=== PATIENT | female | born 1955 | race Caucasian/White ===

== ENCOUNTER 2020-11-13 15:21 | Inpatient (IN) | payer OTHER, MEDICARE ==
[2020-11-13] MEDS ORDERED: Loperamide HCl 2 MG CAP PO PRN ×2 (15:30→16:09)
[2020-11-13] MEDS ORDERED: HYDROcodone/Acetaminophen 5/325 mg Tablet PO PRN (15:30)
[2020-11-13] MEDS ORDERED: [UNRECOGNIZED DRUG - OTHER] TOP PRN (16:09)
[2020-11-13] MEDS ORDERED: Nystatin Powder 15 GM BOT TOP PRN (16:09)
[2020-11-13] MEDS ORDERED: cefTRIAXone\\ROCEPHIN 1 GM VIAL IVPB SCH (16:15)
[2020-11-13] MEDS: cefTRIAXone\\ROCEPHIN 1 GM in Sodium Chloride 0.9% 100 ML IVPB SCH (17:25)
[2020-11-13] MEDS ORDERED: Vancomycin HCl 750 MG in Sodium Chloride 0.9% 250 ML 250 ML IVPB SCH ×2 (18:00→20:00)
[2020-11-13 18:52] LABS: Vancomycin, Trough 18.1 ug/mL
[2020-11-13] MEDS ORDERED: Vancomycin HCl 1 GM in Sodium Chloride 0.9% 250 ML 250 ML IVPB SCH ×2 (19:00→21:00)
[2020-11-13] MEDS: HYDROcodone/Acetaminophen 5/325 mg Tablet PO PRN (20:51)
[2020-11-13] MEDS: Vitamin E 400 UNITS CAP PO SCH (20:54)
[2020-11-13] MEDS: Colchicine 0.6 MG TAB PO SCH (20:54)
[2020-11-13] MEDS: Apixaban 5 MG TAB PO SCH (20:55)
[2020-11-13] MEDS: Folic Acid 1 MG TAB PO SCH (20:55)
[2020-11-13] MEDS: Carvedilol 25 MG TAB PO SCH (20:55)
[2020-11-13] MEDS: Valsartan 80 MG TAB PO SCH (20:55)
[2020-11-14 05:25] LABS: #Eosinphils 0.2 thou/uL (0.0-0.7); #Lymphocytes 1.5 thou/uL (1.20-3.40); #Monocytes 0.4 thou/uL (0.11-0.59); #Neutrophils 7.2 thou/uL (1.40-6.50); %Basophils 0.5 % (0.0-1.0); %Eosinophils 2.5 % (0.0-10.0); %Lymphocytes 15.5 % (21.0-51.0); %Monocytes 3.8 % (0.0-10.0); %Neutrophils 77.7 % (42.0-75.0); Hemoglobin 10.6 g/dL (12.0-16.0); Mean Corpuscular HGB CONC 31.6 g/dL (32.0-36.0); Mean Corpuscular Hemoglobin 27.7 pg (27.0-31.0); Mean Corpuscular Volume 87.8 fL (78.0-98.0); Mean Platelet Volume 6.7 fL (7.4-10.4); Platelet Count 253 thou/uL (130-400); RBC Distribution Width 15.8 % (11.5-14.5); Red Blood Cell (RBC) Count 3.82 mill/uL (4.20-5.40); White Blood Cell (WBC) Count 9.3 thou/uL (4.8-10.8)
[2020-11-14 05:32] LABS: ALT (SGPT) 12 U/L (8-55); AST (SGOT) 16 U/L (5-34); Albumin 2.8 g/dL (3.4-4.8); Alkaline Phosphatase 136 U/L (40-110); Anion Gap 14 mmol/L (10-20); BUN (Urea Nitrogen) 11 mg/dL (9.8-20.1); Bilirubin, Total 0.4 mg/dL (0.2-1.2); Calc. Creatinine Clearance 116 mL/min (70-130); Calcium 8.7 mg/dL (7.8-10.44); Carbon Dioxide 27 mmol/L (23-31); Chloride 107 mmol/L (98-107); Globulin 2.8 g/dL (2.4-3.5); Glucose 101 mg/dL (80-115); Potassium 3.6 mmol/L (3.5-5.1); Protein, Total 5.6 g/dL (5.8-8.1); Sodium 144 mmol/L (136-145)
--- NOTE | 2020-11-14 07:52 | HP ---
HISTORY OF PRESENT ILLNESS: The patient is a very pleasant 65-year-old white female with a long history of hypertension, hyperlipidemia, and rheumatoid arthritis with good control on methotrexate and Enbrel, who did develop however in an occult abscess of her right foot with subsequent MSSA bacteremia requiring abscess incision and drainage of right foot and placement on long-term antibiotics with Rocephin and vancomycin. Concomitantly with initiation of this antibiotic treatment, she developed recurrent severe diarrhea with extensive workup including multiple studies for bacteria, infection, parasitic infection, inflammatory bowel disease, ischemic bowel disease with negative colonoscopy. She subsequently required admission back to the hospital again because of incontinence and recurrent diarrhea and dehydration. There she was also found to have a stage IV decubitus ulcer because of her poor nutrition, 15-25 pounds weight loss, and recurrent fecal incontinence on admissions. She was also found to be severely hypokalemic and was subsequently readmitted back to the hospital. She has improved with institution of antidiarrheal agents with loperamide and probiotic with Florastor, Metamucil and ongoing treatment with narcotics for her sacral decubitus pain. She transiently had a wound VAC on the right foot, which has been discontinued, however, it is felt that she required physical therapy, occupational therapy as well as long-term antibiotics at the skilled unit to finish her full 6 week course at end of October on vancomycin and Rocephin. She has developed another complication of red man syndrome secondary to the vancomycin being treated with Benadryl with persistent rash but no signs of anaphylaxis. Patient developed a DVT in her right lower extremity in the last week secondary to immobility and has been started on Eliquis therapy. PAST MEDICAL HISTORY: As mentioned above is positive for long-term rheumatoid arthritis with only complications of some rheumatoid nodules, but no significant deformities on long-term methotrexate and Enbrel. She also has a history of hypertension, well controlled on carvedilol and furosemide. She has a history of hyperlipidemia on no treatment at this time. Past medical history is also remarkable for history of viral myocarditis with significant decreased ejection fraction, resolved with time. SOCIAL HISTORY: She lives alone. She drinks socially. Denies drug abuse, nicotine abuse. She has been working full-time prior to this. ALLERGIES: SHE HAS A HISTORY OF ALLERGY TO PENICILLIN OINTMENTS. PAST SURGICAL HISTORY: Positive for cholecystectomy, incision and drainage of right foot abscess, carpal tunnel surgery, PICC line placement. REVIEW OF SYSTEMS: HEENT: She denies any headaches, dizziness, change in vision or hearing, hoarseness, or dysphagia. PULMONARY: She denies cough, sputum production, pneumonia, asthma or tuberculosis. CARDIOVASCULAR: She denies chest pain, orthopnea, paroxysmal nocturnal dyspnea or edema. GASTROINTESTINAL: She denies nausea, vomiting. Her diarrhea appears to be improved with above-mentioned treatment. Tolerating a regular diet. GENITOURINARY: She denies dysuria, hematuria, nocturia. MUSCULOSKELETAL: She has the above-mentioned history of a right foot abscess. Wound VAC has been removed and is wrapped and she is cooperating with therapy. She also has a history of stage IV decubitus, not examined by me or by the nurse. Appears to be clean on pictures, is bandaged at this time. NEUROLOGIC: She denies localized numbness, weakness, or extremities. PHYSICAL EXAMINATION: GENERAL: The patient is an elderly white female, lying in bed, no acute distress, ambulating to the bathroom. No distress. VITAL SIGNS: Showed to have temperature 96, pulse 68, respirations 18, O2 sats 98% on room air, blood pressure 159/70. HEENT: Pupils are equal, round, and reactive to light and accommodation. Sclerae anicteric. Conjunctivae pale. Oral mucous membranes well hydrated. NECK: Supple. There are no nodes or masses. JVP is not elevated. LUNGS: Clear. CARDIAC: Showed regular rhythm. No gallops or murmurs. ABDOMEN: Soft and nontender with no masses or organomegaly. SKIN/EXTREMITIES: Show right foot is bandaged. There is a bandage over sacrum. There is diffuse red rash to her body, worsened after vancomycin treatment. NEUROLOGIC: Cranial nerves II through XII intact. Deep tendon reflex 2+ and equal. There are absent Babinski's. LABORATORY DATA: Show white count 9300, hematocrit 33, hemoglobin 10. Sodium is 144, potassium 3.6, chloride 107, bicarb 27, BUN 11, creatinine 0.78, glucose 101, calcium 8.7, alkaline phosphatase 136, albumin 2.8, total protein 5.6. ASSESSMENT: 1. Rheumatoid arthritis, controlled to goal with only few rheumatoid nodules until development of an occult abscess in the right foot, which now has been incised and drained. She has been continued on her methotrexate and Enbrel with no evidence of current infection. 2. Methicillin-susceptible Staphylococcus aureus bacteremia; on IV vancomycin and Rocephin until November 23. No evidence of recurrence. 3. Red man syndrome secondary to vancomycin despite slow infusion and we will discuss with Infectious Disease. Necessity to continue vancomycin and addition of Rocephin. 4. Severe deconditioning, improving, but is needing to work with therapy to maintain ADLs. 5. Recurrent diarrhea, which appears to be improving on symptomatic treatment with loperamide, psyllium, probiotic. 6. Hypertension, controlled to goal. 7. History of viral myocarditis and cardiomyopathy, resolved. 8. New onset of deep vein thrombosis; on apixaban 5 mg twice daily for 3 months. No evidence of pulmonary embolus. 9. T12 compression fracture with resolved pain felt possibly due to diskitis but no need for significant new therapy and improving. 10. Chronic kidney disease, stage 2, stable, being followed. 11. Malnutrition with decreased albumin, but eating well and we will monitor. Job ID: [id number]
[2020-11-14] MEDS: Fish Oil 1,000 MG CAP PO SCH (09:06)
[2020-11-14] MEDS: Calcium Carbonate 600 MG + Vit D TAB PO SCH (09:06)
[2020-11-14] MEDS: Metamucil PACK PO SCH (09:06)
[2020-11-14] MEDS: Saccharomyces boulardii 250 MG CAP PO SCH (09:07)
[2020-11-14] MEDS: Cholecalciferol 1,000 UNITS (25 MCG) TAB PO SCH (09:10)
[2020-11-14] MEDS: Vitamin E 400 UNITS CAP PO SCH ×2 (09:10→21:10)
[2020-11-14] MEDS: Stress 600 With Zinc 1 TAB PO SCH (09:10)
[2020-11-14] MEDS: Colchicine 0.6 MG TAB PO SCH ×2 (09:10→21:10)
[2020-11-14] MEDS: Apixaban 5 MG TAB PO SCH ×2 (09:11→21:10)
[2020-11-14] MEDS: Carvedilol 25 MG TAB PO SCH ×2 (09:11→21:10)
[2020-11-14] MEDS: Multivitamin W/ Minerals 1 TAB PO SCH (09:11)
[2020-11-14] MEDS: Aspirin 81 mg Enteric Coated Tablet PO SCH (09:12)
[2020-11-14] MEDS: (Gluc Su/Chondro Su A/Vit C/Mn [Glucosamine 1,500 Complex Capsu PO SCH (10:34)
[2020-11-14] MEDS: Morphine 4 MG/ML VIAL SLOW IVP PRN (10:54)
[2020-11-14] MEDS: Lidocaine 4% Topical Sol 50 ML BOT TOP PRN (11:16)
[2020-11-14 11:51] VITALS: BMI 36.8
[2020-11-14] MEDS ORDERED: Lanolin Alcohol/MO/W.Pet/Ceres 57 GM CR TP PRN (13:45)
[2020-11-14] MEDS: HYDROcodone/Acetaminophen 5/325 mg Tablet PO PRN (14:27)
[2020-11-14] MEDS ORDERED: VANCOMYCIN IVPB SCH (16:00)
[2020-11-14] MEDS: cefTRIAXone\\ROCEPHIN 1 GM in Sodium Chloride 0.9% 100 ML IVPB SCH (17:08)
[2020-11-14] MEDS: Folic Acid 1 MG TAB PO SCH (21:10)
[2020-11-14] MEDS: diphenhydrAMINE 25 MG CAP PO PRN (21:10)
[2020-11-14] MEDS: Valsartan 80 MG TAB PO SCH (21:10)
[2020-11-15] MEDS: Apixaban 5 MG TAB PO SCH ×2 (09:47→20:29)
[2020-11-15] MEDS: Multivitamin W/ Minerals 1 TAB PO SCH (09:47)
[2020-11-15] MEDS: Colchicine 0.6 MG TAB PO SCH ×2 (09:47→20:29)
[2020-11-15] MEDS: Vitamin E 400 UNITS CAP PO SCH ×2 (09:47→20:29)
[2020-11-15] MEDS: Metamucil PACK PO SCH (09:47)
[2020-11-15] MEDS: Calcium Carbonate 600 MG + Vit D TAB PO SCH (09:47)
[2020-11-15] MEDS: Aspirin 81 mg Enteric Coated Tablet PO SCH (09:47)
[2020-11-15] MEDS: Stress 600 With Zinc 1 TAB PO SCH (09:47)
[2020-11-15] MEDS: Cholecalciferol 1,000 UNITS (25 MCG) TAB PO SCH (09:48)
[2020-11-15] MEDS: (Gluc Su/Chondro Su A/Vit C/Mn [Glucosamine 1,500 Complex Capsu PO SCH (09:48)
[2020-11-15] MEDS: Carvedilol 25 MG TAB PO SCH ×2 (09:48→20:29)
[2020-11-15] MEDS: Saccharomyces boulardii 250 MG CAP PO SCH (09:48)
[2020-11-15] MEDS: Fish Oil 1,000 MG CAP PO SCH (09:48)
--- NOTE | 2020-11-15 11:00 | PRG ---
DATE OF SERVICE: 11/14/2020 SUBJECTIVE: The patient feels well with decreasing rash, then changed vancomycin to daptomycin. She is also asking to not have her Enbrel and methotrexate restarted as this has not been given since her admission to the hospital and her rheumatoid arthritis is doing well. Her diarrhea has improved greatly and she is eating well. She is tolerating wound VAC on the sacral decubitus well. OBJECTIVE: VITAL SIGNS: Shows temperature 97.6, pulse 81, respirations 18, O2 sats 96% on room air, blood pressure is 140/70. LUNGS: Clear. CARDIAC: Regular rhythm. ABDOMEN: Soft and nontender. SKIN: Rash is still persistent, but is slightly faded. ASSESSMENT: 1. Resolving methicillin-susceptible Staphylococcus aureus bacteremia, on Rocephin and now on daptomycin cause of Red Man reaction to vancomycin to finish course on November 23. 2. Rheumatoid arthritis, fairly asymptomatic, off any medications since admission in the hospital and will not restart Enbrel and methotrexate. 3. Sacral decubitus with wound VAC in place, clean and healing. 4. Malnutrition improving as the patient is eating better and having no further diarrhea, on symptomatic meds. 5. Severe deconditioning, improving greatly. 6. Hypertension, controlled to goal. 7. Deep venous thrombosis on apixaban for 3 months. 8. T12 compression fracture, resolving with minimal pain. PLAN: 1. Continue daptomycin and Rocephin until November 23. 2. Continue supportive care for diarrhea. 3. Continue PT, OT. 4. Discontinue Enbrel and methotrexate until seen by a edger operator. 5. Continue apixaban for deep venous thrombosis. 6. Continue to monitor vital signs closely. Job ID: [id number]
--- NOTE | 2020-11-15 11:13 | PRG ---
DATE OF SERVICE: 11/15/2020 SUBJECTIVE: The patient feels well with fading rash, minimal pain in her right foot and sacral decubitus and is getting up with family and walking safely. She is having no further diarrhea and is eating well. OBJECTIVE: VITAL SIGNS: Shows temperature 96.2, pulse 78, respirations 18, O2 saturations 95% on room air, blood pressure 167/72. LUNGS: Clear. CARDIAC: Shows regular rhythm. ABDOMEN: Soft and nontender. Wound VAC in place. Bandage over the right foot. ASSESSMENT: 1. Resolving methicillin-susceptible Staphylococcus aureus bacteremia, on daptomycin and Rocephin until November 23. 2. Resolving Red Man syndrome. 3. Stable deep venous thrombosis, on apixaban. 4. Hypertension, controlled to goal. 5. Rheumatoid arthritis, asymptomatic, off any medication at this time. PLAN: 1. Continue wound care. 2. Continue Rocephin and daptomycin. 3. Restart PT/OT next week. 4. Continue full-dose anticoagulation for DVT. Job ID: [id number]
[2020-11-15] MEDS: cefTRIAXone\\ROCEPHIN 1 GM in Sodium Chloride 0.9% 100 ML IVPB SCH (17:48)
[2020-11-15] MEDS: HYDROcodone/Acetaminophen 5/325 mg Tablet PO PRN (20:28)
[2020-11-15] MEDS: Folic Acid 1 MG TAB PO SCH (20:29)
[2020-11-15] MEDS: diphenhydrAMINE 25 MG CAP PO PRN (20:29)
[2020-11-15] MEDS: Valsartan 80 MG TAB PO SCH (20:29)
[2020-11-16] MEDS: Cholecalciferol 1,000 UNITS (25 MCG) TAB PO SCH (08:56)
[2020-11-16] MEDS: Calcium Carbonate 600 MG + Vit D TAB PO SCH (08:57)
[2020-11-16] MEDS: Carvedilol 25 MG TAB PO SCH ×2 (08:57→20:40)
[2020-11-16] MEDS: Stress 600 With Zinc 1 TAB PO SCH (08:57)
[2020-11-16] MEDS: Metamucil PACK PO SCH (08:58)
[2020-11-16] MEDS: Multivitamin W/ Minerals 1 TAB PO SCH (08:58)
[2020-11-16] MEDS: Aspirin 81 mg Enteric Coated Tablet PO SCH (08:58)
[2020-11-16] MEDS: Saccharomyces boulardii 250 MG CAP PO SCH (08:59)
[2020-11-16] MEDS: Colchicine 0.6 MG TAB PO SCH ×2 (08:59→20:40)
[2020-11-16] MEDS: Vitamin E 400 UNITS CAP PO SCH ×2 (08:59→20:40)
[2020-11-16] MEDS: (Gluc Su/Chondro Su A/Vit C/Mn [Glucosamine 1,500 Complex Capsu PO SCH (09:00)
[2020-11-16] MEDS: Fish Oil 1,000 MG CAP PO SCH (09:00)
[2020-11-16] MEDS ORDERED: METHOTREXATE SC SCH (09:00)
[2020-11-16] MEDS ORDERED: ETANERCEPT 50 MG/ML SC SCH (09:00)
[2020-11-16] MEDS: Apixaban 5 MG TAB PO SCH ×2 (09:00→20:39)
--- NOTE | 2020-11-16 14:54 | PRG ---
DATE OF SERVICE: 11/16/2020 SUBJECTIVE: Ms. Connolly is up in bed. She just finished her lunch. She is trying to give some pressure relief to her right gluteal region. Her spouse is in the room. She states that she is still weak, but she is hoping therapy will help. OBJECTIVE: VITAL SIGNS: She is afebrile, heart rate 73, respirations 18, oxygen saturation 95% on room air, blood pressure 142/62. CARDIOVASCULAR: S1-S2 plus. RESPIRATORY: Normal vesicular breath sounds. ABDOMEN: Soft, nontender. Bowel sounds heard in all quadrants. EXTREMITIES: Without cyanosis or clubbing. CENTRAL NERVOUS SYSTEM: Awake and responsive. Generalized weakness, otherwise nonfocal. IMPRESSION: 1. Hypertension. 2. Dyslipidemia. 3. Rheumatoid arthritis. 4. Stage IV decubitus ulcer. 5. Right lower extremity deep venous thrombosis. 6. Resolving right foot abscess. PLAN: 1. Continue current medications. 2. Heart healthy diet. 3. IV antibiotics until November 23. 4. Weekly CBC, CMP, CRP, and sedimentation rate. 5. Decubitus care and precautions. 6. DVT prophylaxis-she is on full dose Eliquis due to new onset DVT. 7. Spinal precautions. 8. Continue therapy. 9. Nutritional support. 10. Discussed with the patient and spouse in detail. All questions answered. 11. Dr. Misbah sawant. Job ID: [id number]
[2020-11-16] MEDS: cefTRIAXone\\ROCEPHIN 1 GM in Sodium Chloride 0.9% 100 ML IVPB SCH (17:03)
[2020-11-16] MEDS: Folic Acid 1 MG TAB PO SCH (20:39)
[2020-11-16] MEDS: ALPRAZolam 0.25 MG TAB PO PRN (20:39)
[2020-11-16] MEDS: Valsartan 80 MG TAB PO SCH (20:40)
[2020-11-16] MEDS: diphenhydrAMINE 25 MG CAP PO PRN (22:04)
[2020-11-16] MEDS: HYDROcodone/Acetaminophen 5/325 mg Tablet PO PRN (22:04)
[2020-11-17] MEDS: ALPRAZolam 0.25 MG TAB PO PRN (09:05)
[2020-11-17] MEDS: HYDROcodone/Acetaminophen 5/325 mg Tablet PO PRN ×2 (09:06→21:52)
[2020-11-17] MEDS: Aspirin 81 mg Enteric Coated Tablet PO SCH (09:08)
[2020-11-17] MEDS: Cholecalciferol 1,000 UNITS (25 MCG) TAB PO SCH (09:08)
[2020-11-17] MEDS: Colchicine 0.6 MG TAB PO SCH ×2 (09:08→20:39)
[2020-11-17] MEDS: Carvedilol 25 MG TAB PO SCH ×2 (09:09→20:39)
[2020-11-17] MEDS: Calcium Carbonate 600 MG + Vit D TAB PO SCH (09:09)
[2020-11-17] MEDS: Fish Oil 1,000 MG CAP PO SCH (09:09)
[2020-11-17] MEDS: Apixaban 5 MG TAB PO SCH ×2 (09:09→20:39)
[2020-11-17] MEDS: Stress 600 With Zinc 1 TAB PO SCH (09:09)
[2020-11-17] MEDS: Vitamin E 400 UNITS CAP PO SCH ×2 (09:09→20:39)
[2020-11-17] MEDS: Saccharomyces boulardii 250 MG CAP PO SCH (09:10)
[2020-11-17] MEDS: Multivitamin W/ Minerals 1 TAB PO SCH (09:10)
[2020-11-17] MEDS: (Gluc Su/Chondro Su A/Vit C/Mn [Glucosamine 1,500 Complex Capsu PO SCH (09:10)
[2020-11-17] MEDS: Metamucil PACK PO SCH (09:10)
[2020-11-17] MEDS ORDERED: Sodium Chloride 0.9% 10 ML ONE (13:18)
[2020-11-17] MEDS: Morphine 4 MG/ML VIAL SLOW IVP PRN (13:21)
[2020-11-17] MEDS: Lidocaine 4% Topical Sol 50 ML BOT TOP PRN (13:23)
[2020-11-17] MEDS: cefTRIAXone\\ROCEPHIN 1 GM in Sodium Chloride 0.9% 100 ML IVPB SCH (17:09)
[2020-11-17] MEDS: Folic Acid 1 MG TAB PO SCH (20:39)
[2020-11-17] MEDS: Valsartan 80 MG TAB PO SCH (20:39)
[2020-11-17] MEDS: diphenhydrAMINE 25 MG CAP PO PRN (21:53)
--- NOTE | 2020-11-18 06:49 | PRG ---
DATE OF SERVICE: 11/17/2020 SUBJECTIVE: The patient lying in bed, feels well, feels she is getting stronger, working with therapy. She is concerned somewhat that her right thigh is still swollen at site of the DVT despite being on anticoagulation. She is having no further rash. She is eating well. She is having no further diarrhea. OBJECTIVE: VITAL SIGNS: Show temperature is 98.9, pulse 75, respirations 20, O2 saturations 95% on room air, and blood pressure is 153/65. EXTREMITIES: Right foot is bandaged. Sacral decubitus has wound VAC in place. ASSESSMENT: 1. Stable rheumatoid arthritis, off any therapy. 2. Resolving right foot abscess and methicillin-susceptible Staphylococcus aureus bacteremia, on IV daptomycin and Rocephin until November 23. 3. Stage IV decubitus, healing well with wound VAC. 4. Right lower extremity deep venous thrombosis, on full-dose anticoagulation with persistent swelling. 5. Hypertension, controlled to goal. PLAN: 1. Continue PT, OT. 2. Continue full-dose anticoagulation with apixaban. 3. Continue to monitor rheumatoid arthritis off medication. 4. Continue daptomycin and Rocephin until November 23. 5. Continue wound care, sacral decubitus with wound VAC. Job ID: [id number]
[2020-11-18] MEDS: Fish Oil 1,000 MG CAP PO SCH (09:26)
[2020-11-18] MEDS: Calcium Carbonate 600 MG + Vit D TAB PO SCH (09:26)
[2020-11-18] MEDS: Colchicine 0.6 MG TAB PO SCH ×2 (09:27→21:10)
[2020-11-18] MEDS: Metamucil PACK PO SCH (09:27)
[2020-11-18] MEDS: Apixaban 5 MG TAB PO SCH ×2 (09:27→21:10)
[2020-11-18] MEDS: Stress 600 With Zinc 1 TAB PO SCH (09:27)
[2020-11-18] MEDS: Saccharomyces boulardii 250 MG CAP PO SCH (09:27)
[2020-11-18] MEDS: Aspirin 81 mg Enteric Coated Tablet PO SCH (09:27)
[2020-11-18] MEDS: Multivitamin W/ Minerals 1 TAB PO SCH (09:27)
[2020-11-18] MEDS: Vitamin E 400 UNITS CAP PO SCH ×2 (09:27→21:10)
[2020-11-18] MEDS: Carvedilol 25 MG TAB PO SCH ×2 (09:28→21:10)
[2020-11-18] MEDS: Cholecalciferol 1,000 UNITS (25 MCG) TAB PO SCH (09:28)
[2020-11-18] MEDS: (Gluc Su/Chondro Su A/Vit C/Mn [Glucosamine 1,500 Complex Capsu PO SCH (09:31)
[2020-11-18] MEDS: cefTRIAXone\\ROCEPHIN 1 GM in Sodium Chloride 0.9% 100 ML IVPB SCH (16:40)
[2020-11-18] MEDS: HYDROcodone/Acetaminophen 5/325 mg Tablet PO PRN (21:09)
[2020-11-18] MEDS: diphenhydrAMINE 25 MG CAP PO PRN (21:09)
[2020-11-18] MEDS: Folic Acid 1 MG TAB PO SCH (21:10)
[2020-11-18] MEDS: Valsartan 80 MG TAB PO SCH (21:10)
[2020-11-19] MEDS: Cholecalciferol 1,000 UNITS (25 MCG) TAB PO SCH (09:24)
[2020-11-19] MEDS: Vitamin E 400 UNITS CAP PO SCH ×2 (09:25→21:48)
[2020-11-19] MEDS: Metamucil PACK PO SCH (09:25)
[2020-11-19] MEDS: Fish Oil 1,000 MG CAP PO SCH (09:25)
[2020-11-19] MEDS: Multivitamin W/ Minerals 1 TAB PO SCH (09:25)
[2020-11-19] MEDS: Colchicine 0.6 MG TAB PO SCH ×2 (09:26→21:48)
[2020-11-19] MEDS: Calcium Carbonate 600 MG + Vit D TAB PO SCH (09:26)
[2020-11-19] MEDS: Aspirin 81 mg Enteric Coated Tablet PO SCH (09:26)
[2020-11-19] MEDS: ALPRAZolam 0.25 MG TAB PO PRN (09:26)
[2020-11-19] MEDS: Stress 600 With Zinc 1 TAB PO SCH (09:26)
[2020-11-19] MEDS: Saccharomyces boulardii 250 MG CAP PO SCH (09:26)
[2020-11-19] MEDS: Carvedilol 25 MG TAB PO SCH ×2 (09:27→21:48)
[2020-11-19] MEDS: Apixaban 5 MG TAB PO SCH ×2 (09:27→21:48)
[2020-11-19] MEDS: Lidocaine 4% Topical Sol 50 ML BOT TOP PRN (11:03)
[2020-11-19] MEDS: Morphine 4 MG/ML VIAL SLOW IVP PRN (11:03)
[2020-11-19] MEDS: HYDROcodone/Acetaminophen 5/325 mg Tablet PO PRN ×2 (14:36→21:48)
[2020-11-19] MEDS: cefTRIAXone\\ROCEPHIN 1 GM in Sodium Chloride 0.9% 100 ML IVPB SCH (17:43)
[2020-11-19] MEDS: Folic Acid 1 MG TAB PO SCH (21:48)
[2020-11-19] MEDS: Valsartan 80 MG TAB PO SCH (21:48)
[2020-11-19] MEDS: diphenhydrAMINE 25 MG CAP PO PRN (21:48)
[2020-11-20 05:29] LABS: Hemoglobin 9.5 g/dL (12.0-16.0); Platelet Count 256 thou/uL (130-400)
--- NOTE | 2020-11-20 06:43 | PRG ---
DATE OF SERVICE: 11/18/2020 SUBJECTIVE: Patient feels well. Feels she is getting better. No fever or chills, getting stronger. She is having no further rash. No further diarrhea. Antibiotics are to continue until November 23. OBJECTIVE: VITAL SIGNS: Temperature is 98.5, pulse 68, respirations 16, O2 sats 96% on room air, blood pressure 169/73. LUNGS: Clear. CARDIAC: Examination shows regular rhythm. ABDOMEN: Soft and nontender. SKIN AND EXTREMITIES: Display no further rash. Right foot is bandaged. The sacral decubitus is clean with wound VAC in place. ASSESSMENT: 1. Resolving sacral decubitus with wound VAC. 2. Resolving MSSA bacteremia, on daptomycin and Rocephin. 3. Improving deconditioning, working with physical therapy. 4. Rheumatoid arthritis, asymptomatic, off medication. PLAN: 1. Continue IV Rocephin and daptomycin. 2. Continue PT/OT. 3. Continue pain relief as needed. Job ID: [id number]
--- NOTE | 2020-11-20 07:00 | PRG ---
DATE OF SERVICE: 11/19/2020 SUBJECTIVE: The patient feels well working with therapy. She is concerned somewhat about caring for her wound VAC at home, but is hoping that insurance will pay for her to stay another week for the wound VAC care. She will finish her antibiotics in next several days. OBJECTIVE: VITAL SIGNS: Temperature is 98.5, pulse 68, respirations 16, O2 sats 96% on room air, blood pressure is 169/73. LUNGS: Clear. CARDIAC: Shows regular rhythm. ABDOMEN: Soft, nontender. SKIN: Extremities showed no rash. ASSESSMENT: 1. Resolving sacral decubitus wound VAC in place. 2. Resolving methicillin-susceptible Staphylococcus aureus bacteremia, on IV daptomycin and Rocephin until November 23. 3. Improving deconditioning. 4. Stable rheumatoid arthritis, off therapy. PLAN: 1. Continue IV daptomycin and Rocephin until November 23. 2. Continue wound VAC sacral decubitus. 3. Continue PT/OT. 4. Continue to monitor rheumatoid arthritis for flare. Job ID: [id number]
[2020-11-20] MEDS: Apixaban 5 MG TAB PO SCH ×2 (08:45→21:10)
[2020-11-20] MEDS: Colchicine 0.6 MG TAB PO SCH ×2 (08:45→21:10)
[2020-11-20] MEDS: Multivitamin W/ Minerals 1 TAB PO SCH (08:45)
[2020-11-20] MEDS: Vitamin E 400 UNITS CAP PO SCH ×2 (08:45→21:10)
[2020-11-20] MEDS: Saccharomyces boulardii 250 MG CAP PO SCH (08:45)
[2020-11-20] MEDS: Carvedilol 25 MG TAB PO SCH ×2 (08:45→21:10)
[2020-11-20] MEDS: Calcium Carbonate 600 MG + Vit D TAB PO SCH (08:45)
[2020-11-20] MEDS: Aspirin 81 mg Enteric Coated Tablet PO SCH (08:45)
[2020-11-20] MEDS: Fish Oil 1,000 MG CAP PO SCH (08:45)
[2020-11-20] MEDS: Stress 600 With Zinc 1 TAB PO SCH (08:45)
[2020-11-20] MEDS: Cholecalciferol 1,000 UNITS (25 MCG) TAB PO SCH (08:46)
[2020-11-20] MEDS: Metamucil PACK PO SCH (08:46)
[2020-11-20] MEDS ORDERED: Ergocalciferol 1.25 MG(50,000 UNITS) CAP PO SCH (09:00)
[2020-11-20] MEDS: Ondansetron ODT 4 MG TAB SL PRN (10:09)
[2020-11-20] MEDS: cefTRIAXone\\ROCEPHIN 1 GM in Sodium Chloride 0.9% 100 ML IVPB SCH (17:46)
[2020-11-20] MEDS: Folic Acid 1 MG TAB PO SCH (21:10)
[2020-11-20] MEDS: Valsartan 80 MG TAB PO SCH (21:10)
[2020-11-20] MEDS: HYDROcodone/Acetaminophen 5/325 mg Tablet PO PRN (21:11)
--- NOTE | 2020-11-21 06:25 | PRG ---
DATE OF SERVICE: 11/20/2020 SUBJECTIVE: The patient feels well, working with therapy, feels she is getting stronger. Awaiting decision from insurance company whether she qualifies for more days for wound care. Her sacral decubitus is improving with the wound VAC, but is still requiring. OBJECTIVE: VITAL SIGNS: Temperature is 96.4, pulse 68, respirations 22, O2 saturations 97% on room air. Blood pressure had been doing well, was up to 185/79 this afternoon, previously never higher than 145/70. LUNGS: Clear. CARDIAC: Regular rhythm. ABDOMEN: Soft and nontender. SKIN/EXTREMITIES: Showed stable rheumatoid arthritis. No further rash. ASSESSMENT: 1. Resolving sacral decubitus, still requiring wound VAC. 2. Resolving MSSA bacteremia, on IV daptomycin and Rocephin until November 23. 3. Rheumatoid arthritis, stable, off therapy. 4. Improving deconditioning. PLAN: 1. Continue PT and OT. 2. Continue wound VAC. 3. Continue IV daptomycin and Rocephin until November 23. 4. Continue to monitor for flare of rheumatoid arthritis. Job ID: [id number]
[2020-11-21] MEDS: Cholecalciferol 1,000 UNITS (25 MCG) TAB PO SCH (10:14)
[2020-11-21] MEDS: Aspirin 81 mg Enteric Coated Tablet PO SCH (10:15)
[2020-11-21] MEDS: Fish Oil 1,000 MG CAP PO SCH (10:18)
[2020-11-21] MEDS: Stress 600 With Zinc 1 TAB PO SCH (10:19)
[2020-11-21] MEDS: Multivitamin W/ Minerals 1 TAB PO SCH (10:19)
[2020-11-21] MEDS: Saccharomyces boulardii 250 MG CAP PO SCH (10:19)
[2020-11-21] MEDS: Vitamin E 400 UNITS CAP PO SCH ×2 (10:19→21:07)
[2020-11-21] MEDS: Apixaban 5 MG TAB PO SCH ×2 (10:19→21:07)
[2020-11-21] MEDS: Colchicine 0.6 MG TAB PO SCH ×2 (10:19→21:08)
[2020-11-21] MEDS: Carvedilol 25 MG TAB PO SCH ×2 (10:20→21:08)
[2020-11-21] MEDS: Metamucil PACK PO SCH (10:25)
[2020-11-21] MEDS: Calcium Carbonate 600 MG + Vit D TAB PO SCH (10:26)
[2020-11-21] MEDS: Morphine 4 MG/ML VIAL SLOW IVP PRN (13:40)
[2020-11-21] MEDS: cefTRIAXone\\ROCEPHIN 1 GM in Sodium Chloride 0.9% 100 ML IVPB SCH (16:59)
[2020-11-21] MEDS: Valsartan 80 MG TAB PO SCH (21:07)
[2020-11-21] MEDS: HYDROcodone/Acetaminophen 5/325 mg Tablet PO PRN (21:08)
[2020-11-21] MEDS: Folic Acid 1 MG TAB PO SCH (21:08)
[2020-11-22] MEDS: Cholecalciferol 1,000 UNITS (25 MCG) TAB PO SCH (09:34)
[2020-11-22] MEDS: Apixaban 5 MG TAB PO SCH ×2 (09:35→21:20)
[2020-11-22] MEDS: Valsartan 80 MG TAB PO SCH ×3 (09:35→21:22)
[2020-11-22] MEDS: Colchicine 0.6 MG TAB PO SCH ×2 (09:35→21:20)
[2020-11-22] MEDS: Calcium Carbonate 600 MG + Vit D TAB PO SCH (09:35)
[2020-11-22] MEDS: Aspirin 81 mg Enteric Coated Tablet PO SCH (09:36)
[2020-11-22] MEDS: Carvedilol 25 MG TAB PO SCH ×2 (09:36→21:20)
[2020-11-22] MEDS: Saccharomyces boulardii 250 MG CAP PO SCH (09:36)
[2020-11-22] MEDS: Fish Oil 1,000 MG CAP PO SCH (09:37)
[2020-11-22] MEDS: Multivitamin W/ Minerals 1 TAB PO SCH (09:37)
[2020-11-22] MEDS: Vitamin E 400 UNITS CAP PO SCH ×2 (09:37→21:19)
[2020-11-22] MEDS: Stress 600 With Zinc 1 TAB PO SCH (09:38)
[2020-11-22] MEDS: Metamucil PACK PO SCH (09:38)
--- NOTE | 2020-11-22 09:38 | PRG ---
DATE OF SERVICE: 11/22/2020 SUBJECTIVE: This is a pleasant 65-year-old female here for long-term IV antibiotics secondary to MSSA bacteremia. The patient is on daptomycin and Rocephin until tomorrow. The patient is doing well overall with no complaints today. OBJECTIVE: VITAL SIGNS: Temperature 97.1, pulse 72, respirations 20, O2 sat is 93% on room air, and blood pressure ranging from 146/67 to 176/77. LUNGS: Clear to auscultation bilaterally. CARDIAC: Regular rate and rhythm. No murmurs, gallops, or rubs. ABDOMEN: Soft, nontender to palpation. Bowel sounds positive in all 4 quadrants. ASSESSMENT: 1. Resolving sacral decubitus, requiring a wound VAC. 2. Resolving methicillin-susceptible Staphylococcus aureus bacteremia, on IV daptomycin and Rocephin until tomorrow, November 23. 3. Rheumatoid arthritis, stable off therapy. 4. Improving deconditioning. PLAN: 1. Continue PT and OT Services. 2. Continue wound VAC. 3. Continue IV daptomycin and Rocephin until tomorrow. 4. BP has been consistently elevated, so we will increase her Diovan to b.i.d., dosing 80 mg b.i.d. 5. Continue monitor the flares of rheumatoid arthritis. Job ID: [id number]
[2020-11-22] MEDS: Ondansetron ODT 4 MG TAB SL PRN (10:38)
[2020-11-22] MEDS: cefTRIAXone\\ROCEPHIN 1 GM in Sodium Chloride 0.9% 100 ML IVPB SCH (17:05)
[2020-11-22] MEDS: Folic Acid 1 MG TAB PO SCH (21:20)
[2020-11-22] MEDS: HYDROcodone/Acetaminophen 5/325 mg Tablet PO PRN (21:21)
[2020-11-23] MEDS: Metamucil PACK PO SCH (07:56)
[2020-11-23] MEDS: Saccharomyces boulardii 250 MG CAP PO SCH (07:57)
[2020-11-23] MEDS: Apixaban 5 MG TAB PO SCH ×2 (07:57→21:00)
[2020-11-23] MEDS: Valsartan 80 MG TAB PO SCH ×2 (07:58→21:01)
[2020-11-23] MEDS: Carvedilol 25 MG TAB PO SCH ×2 (07:58→21:00)
[2020-11-23] MEDS: Colchicine 0.6 MG TAB PO SCH ×2 (07:59→21:00)
[2020-11-23] MEDS: Aspirin 81 mg Enteric Coated Tablet PO SCH (08:00)
[2020-11-23] MEDS: Stress 600 With Zinc 1 TAB PO SCH (08:01)
[2020-11-23] MEDS: Vitamin E 400 UNITS CAP PO SCH ×2 (08:01→21:01)
[2020-11-23] MEDS: Fish Oil 1,000 MG CAP PO SCH (08:02)
[2020-11-23] MEDS: Cholecalciferol 1,000 UNITS (25 MCG) TAB PO SCH (08:02)
[2020-11-23] MEDS: Calcium Carbonate 600 MG + Vit D TAB PO SCH (08:02)
[2020-11-23] MEDS: Multivitamin W/ Minerals 1 TAB PO SCH (08:02)
[2020-11-23] MEDS: cefTRIAXone\\ROCEPHIN 1 GM in Sodium Chloride 0.9% 100 ML IVPB SCH (16:42)
[2020-11-23] MEDS: HYDROcodone/Acetaminophen 5/325 mg Tablet PO PRN (20:59)
[2020-11-23] MEDS: Folic Acid 1 MG TAB PO SCH (21:00)
[2020-11-24] MEDS: Calcium Carbonate 600 MG + Vit D TAB PO SCH ×2 (09:54→11:10)
[2020-11-24] MEDS: Colchicine 0.6 MG TAB PO SCH (09:54)
[2020-11-24] MEDS: Metamucil PACK PO SCH (09:54)
[2020-11-24] MEDS: Fish Oil 1,000 MG CAP PO SCH ×2 (09:55→11:08)
[2020-11-24] MEDS: Apixaban 5 MG TAB PO SCH (09:55)
[2020-11-24] MEDS: Saccharomyces boulardii 250 MG CAP PO SCH (09:55)
[2020-11-24] MEDS: Multivitamin W/ Minerals 1 TAB PO SCH ×2 (09:55→11:10)
[2020-11-24] MEDS: Valsartan 80 MG TAB PO SCH (09:55)
[2020-11-24] MEDS: Aspirin 81 mg Enteric Coated Tablet PO SCH (09:55)
[2020-11-24] MEDS: Carvedilol 25 MG TAB PO SCH (09:55)
[2020-11-24] MEDS: Stress 600 With Zinc 1 TAB PO SCH ×2 (09:55→11:10)
[2020-11-24] MEDS: Cholecalciferol 1,000 UNITS (25 MCG) TAB PO SCH (09:56)
[2020-11-24] MEDS: Vitamin E 400 UNITS CAP PO SCH (09:57)
[2020-11-24 14:06] VITALS: BP 148/72; TEMP 98
--- NOTE | 2020-11-25 06:37 | PRG ---
DATE OF SERVICE: 11/23/2020 SUBJECTIVE: The patient feels well. She is preparing for discharge tomorrow as feels she is ready to be discharged tomorrow when antibiotics finished today. OBJECTIVE: VITAL SIGNS: Shows temperature is 98, pulse 75, respirations 19, O2 saturations 96% on room air. Blood pressure is still elevated 167/67, Diovan has just recently been increased. LUNGS: Clear. CARDIAC: Shows regular rhythm. ABDOMEN: Soft and nontender. SKIN: Extremities show wound VAC in place over sacrum, but right foot abscess is resolved. ASSESSMENT: 1. Resolving MSSA bacteremia with antibiotics to finish today. 2. Improving sacral decubitus with wound VAC. 3. Improved deconditioning, ambulating in the vazquez. 4. Rheumatoid arthritis, on no treatment, asymptomatic at this time. PLAN: 1. Finish antibiotics tonight. 2. Plan for discharge tomorrow. 3. Arrange for followup PCP and Home Health to maintain wound VAC. Job ID: [id number]
--- NOTE | 2020-11-25 07:05 | DIS ---
DATE OF ADMISSION: 11/13/2020 DATE OF DISCHARGE: 11/24/2020 DATE OF TRANSFER AT HOME: November 24, 2020. FINAL DIAGNOSES: 1. Methicillin-susceptible Staphylococcus aureus bacteremia, resolved with full 2-week course of IV antibiotics finished. 2. Rheumatoid arthritis, asymptomatic on no treatment. 3. Sacral decubitus stage IV, improving with wound VAC in place. 4. Poor nutrition and weight loss are resolving with increased oral intake. 5. Recurrent diarrhea, controlled with Florastor, Metamucil, and loperamide. HOSPITAL COURSE: The patient is a very pleasant 65-year-old white female with a long history of hypertension, hyperlipidemia, rheumatoid arthritis, who has been found to have MSSA bacteremia originating with an abscess in her right foot requiring incision and drainage. She was placed on Rocephin and vancomycin, and did develop red man syndrome, but was transferred to [facility] to finish full 6-week course until November 23. She had her vancomycin changed to daptomycin with no further red man syndrome. She slowly, but surely improved with PT, OT, and was ambulating in the vazquez without assistance. On discharge, she did continue her wound VAC for stage IV sacral decubitus, but was improving daily and was dry, noninfected. She was eating well with having no further diarrhea. On the above-mentioned Florastor, Metamucil, and loperamide, she was continued on her Eliquis therapy for her DVT to finish full 3 months course. She was continued on carvedilol and furosemide for hypertension, in fact her valsartan was increased to 80 mg twice daily and be followed up by PCP. She was discharged home on limited amount of hydrocodone 5/325 until she can follow up with her PCP. She will have wound care as an outpatient to continue the wound VAC, but will be discharged on dry dressing until the wound VAC can be replaced. Job ID: [id number]
--- NOTE | 2020-11-25 09:30 | PRG ---
DATE OF SERVICE: 11/21/2020 SUBJECTIVE: The patient feels well, getting stronger, walking in the vazquez with therapy. Still requiring a wound VAC for sacral decubitus, but appears to have minimal drainage, finishing IV daptomycin and Rocephin on the , and is preparing for discharge next week if insurance company does not approve. OBJECTIVE: VITAL SIGNS: Shows temperature 97.1, pulse 72, respirations 20, O2 sats 93% on room air, blood pressure 176/77. LUNGS: Clear. CARDIAC EXAMINATION: Regular rhythm. EXTREMITIES: Wound VAC is in place on sacral decubitus. Right foot, appears to be clean and dry. Rash is resolved completely. ASSESSMENT: 1. Resolving methicillin-susceptible Staphylococcus aureus bacteremia, on daptomycin and Rocephin until November 23. 2. Slowly improving sacral decubitus with wound VAC. 3. Rheumatoid arthritis, asymptomatic, on no medication. 4. Deconditioning, improved greatly. PLAN: 1. Continue PT, OT. 2. Continue wound VAC. 3. Continue daptomycin and Rocephin. 4. Monitor blood pressure on Diovan 80 mg twice daily and follow up with PCP at home. Job ID: [id number]
== END 2020-11-24 12:30 | disposition home or self-care (01) | DRG 602 ==
LOC: NAV ACUTE 15:21
PROVIDERS: ADMIT Internal Medicine; ATTEND Internal Medicine
DX: L02.611 Cutaneous abscess of right foot (principal); L89.154 Pressure ulcer of sacral region, stage 4; R78.81 Bacteremia; E46 Unspecified protein-calorie malnutrition; M48.54XA Collapsed vertebra, not elsewhere classified, thoracic region, initial encounter for fracture; I82.401 Acute embolism and thrombosis of unspecified deep veins of right lower extremity; E78.5 Hyperlipidemia, unspecified; M06.9 Rheumatoid arthritis, unspecified; B95.61 Methicillin susceptible Staphylococcus aureus infection as the cause of diseases classified elsewhere; R53.81 Other malaise; R19.7 Diarrhea, unspecified; N18.2 Chronic kidney disease, stage 2 (mild); I12.9 Hypertensive chronic kidney disease with stage 1 through stage 4 chronic kidney disease, or unspecified chronic kidney disease; Z88.0 Allergy status to penicillin; Z90.49 Acquired absence of other specified parts of digestive tract
CPT/HCPCS: 36415; 80053; 80202; 85014; 85018; 85025; 85049; 97602; J0696; J0878; J2270; J3370; J3490; J7050; Q0162; Q0163